=== PATIENT | female | born 1970 | race Caucasian/White ===

== ENCOUNTER 2023-11-01 09:57 | Emergency (ER) | payer SELFPAY ==
[~2023-11-01] VITALS: Ht 165.1 cm; Wt 95.5 kg
[2023-11-01] MEDS ORDERED: ACETAMINOPHEN 325 MG TAB PO ONE (12:10)
[2023-11-01] MEDS ORDERED: LIDOCAINE 5% (LIDODERM) PATCH TD ONE (12:10)
[2023-11-01] MEDS ORDERED: KETO10TAB PO (12:36)
[2023-11-01] MEDS ORDERED: METH-1164 PO (12:36)
[2023-11-01 12:47] VITALS: BP 116/80; TEMP 97; O2SAT 98
== END 2023-11-01 12:48 | disposition home or self-care (01) ==
LOC: M ED 09:57 → EDBD 09:57 → M ED 12:48
DX: M62.830 Muscle spasm of back (principal); X50.0XXA Overexertion from strenuous movement or load, initial encounter; Y92.009 Unspecified place in unspecified non-institutional (private) residence as the place of occurrence of the external cause; Y93.K1 Activity, walking an animal; Y99.9 Unspecified external cause status; Z79.1 Long term (current) use of non-steroidal anti-inflammatories (NSAID); Z79.899 Other long term (current) drug therapy